=== PATIENT | male | born 1950 | race Caucasian/White ===

== ENCOUNTER 2018-04-17 13:02 | Emergency (ER) | payer MEDICARE ==
[2018-04-17 13:06] VITALS: BP 147/80
--- NOTE | 2018-04-17 13:08 | ER Report ---
History and Physical Time Seen By MD: 13:09 HPI/ROS CHIEF COMPLAINT: Tooth pain HISTORY OF PRESENT ILLNESS: 67-year-old male patient presents to emergency room with complaint of dental pain. Patient states that pain has been going on for last few days. He's been taking Tylenol ibuprofen which have become ineffective. Patient states he has significant amounts of discomfort. He states he sent been having a hard time sleeping. He denies having any fevers or chills. He states that his been no improvement in the pain with Tylenol or ibuprofen. Patient is currently traveling back home, getting to 7 with surgery if in the next couple of days. Patient did take some Lortab which he has from previous procedure which seem to help. Allergies: Coded Allergies: ciprofloxacin (Verified Adverse Reaction, Intermediate, NAUSEA/VOMITING, 04/17/18) Home Meds Active Scripts Amoxicillin 500 Mg Tab (AMOXICILLIN 500 MG TAB) 500 Mg Tablet, 1 TAB PO Q8H, #30 TAB Prov:BOB MERCERP 04/17/18 Hydrocodone Bit/Acetaminophen (HYDROCODON-ACETAMINOPHEN 5-325) 1 Each Tablet, 1 EACH PO Q4-6H PRN for PAIN, #12 TAB Prov:BOB MERCER 04/17/18 Past Medical/Surgical History Patient has a past medical history of prostate cancer. Patient has a surgical history of prostate surgery, sinus and throat surgeries, uvula and tonsils removed. Reviewed Nurses Notes: Yes Constitutional Vital Sign - Last 24 Hours 04/17/18 13:06 Temp 98.3 Pulse 82 Resp 14 B/P (MAP) 147/80 Pulse Ox 91 O2 Delivery Room Air Physical Exam General appearance: Alert no distress. Respiratory: Chest is non tender, lungs are clear to auscultation. Cardiac: Regular rate and rhythm. ENT: Tympanic membranes are pearly-garcia, auditory canals are patent. Patient does have tenderness to tooth #31. DIFFERENTIAL DIAGNOSIS: After history and physical exam differential diagnosis was considered for dental infection, abscess, dental pain. Medical Decision Making ED Course/Re-evaluation ED Course Patient was admitted and examined, history and physical for pain. Difficult diagnoses were considered. On examination patient had tenderness to tooth #31. I believe that patient likely has a cavity was developed underneath his filling. We will go ahead and treat him with a course of antibiotics as well as limited amount of pain medication. Patient is follow-up with the dentist as he returns home. Patient is to return to emergency room if condition worsens. Patient verbalized understanding and agreement with plan. Decision to Disposition Date: Apr 17, 2018 Decision to Disposition Time: 13:24 Depart Departure Latest Vital Signs Vital Signs Date Time Temp Pulse Resp B/P (MAP) Pulse Ox O2 Delivery O2 Flow Rate FiO2 04/17/18 13:06 98.3 82 14 147/80 91 Room Air Impression: Primary Impression: Toothache Condition: Improved Disposition: HOME OR SELF-CARE New Scripts Amoxicillin 500 Mg Tab (AMOXICILLIN 500 MG TAB) 500 Mg Tablet 1 TAB PO Q8H, #30 TAB Prov: BOB MERCER 04/17/18 Hydrocodone Bit/Acetaminophen (HYDROCODON-ACETAMINOPHEN 5-325) 1 Each Tablet 1 EACH PO Q4-6H PRN for PAIN, #12 TAB Prov: BOB MERCER 04/17/18 Patient Instructions: Toothache (ED) Additional Instructions: You may take Ibuoprofen in addition to the pain medication as needed for pain. Rinse mouth with warm salt water after every meal. Eat soft foods. Follow up with your dentist as soon as possible, call to make an appointment. Return to the ER if condition worsens. BOB MERCER Apr 17, 2018 13:08
[2018-04-17] MEDS ORDERED: AMOX500T10 PO (13:23)
[2018-04-17] MEDS ORDERED: HYDR-385 PO (13:23)
== END 2018-04-17 13:35 | disposition home or self-care (01) ==
LOC: ER 13:07
DX: K08.89 Other specified disorders of teeth and supporting structures (principal)
CPT/HCPCS: 99281